=== PATIENT | female | born 2000 | race American Indian/Alaskan Native ===

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

== ENCOUNTER 2019-01-16 13:48 | Emergency (ER) | payer SELFPAY ==
[2019-01-16 14:04] VITALS: BMI 18.1
[2019-01-16 14:08] VITALS: RESP 18; TEMP 98.9; O2SAT 100
[2019-01-16] MEDS ORDERED: Sodium Chloride 0.9% 1,000 ML IV STA (14:28)
--- NOTE | 2019-01-16 14:28 | ED PDOC ---
Arrival/HPI - General Chief Complaint: Abdominal Pain Time Seen by Provider: 01/16/19 13:49 Historian: Patient - History of Present Illness Narrative History of Present Illness (Text): 18 y/o female with no significant PMH presents to the ED c/o nausea and diarrhea x 1 day. Associated crampy abdominal pain that resolves with BM. Approx 3-4 episodes of nonbloody diarrhea daily. No abdominal pain now. Tolerating PO without difficulty. 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 No recent travel or antibiotics. Requesting work note. Denies fever, chills, vomiting, hematochezia, chest pain, SOB, congestion, urinary symptoms, vaginal bleeding/odor/discharge. Past Medical History - Provider Review Nursing Documentation Reviewed: Yes - Infectious Disease Hx of Infectious Diseases: None - Psychiatric Hx Psychophysiologic Disorder: No Hx Substance Use: No - Anesthesia Hx Anesthesia: No Family/Social History - Physician Review Nursing Documentation Reviewed: Yes Family/Social History: No Known Family HX Smoking Status: Never Smoked Hx Alcohol Use: No Hx Substance Use: No Allergies/Home Meds Allergies/Adverse Reactions: Allergies Penicillins Allergy (Verified 01/16/19 14:04) RASH Review of Systems - Review of Systems Constitutional: Normal. absent: Fevers Eyes: Normal. absent: Vision Changes ENT: Normal. absent: Sore Throat, Sinus Congestion Respiratory: Normal. absent: SOB Cardiovascular: Normal. absent: Chest Pain, Palpitations, Syncope Gastrointestinal: Abdominal Pain, Diarrhea, Nausea. absent: Vomiting, Appetite Changes, Hematochezia, Hematemesis Genitourinary Female: Normal. absent: Dysuria, Frequency, Vaginal Bleeding, Vaginal Discharge Musculoskeletal: Normal. absent: Back Pain, Neck Pain Skin: Normal. absent: Rash Neurological: Normal. absent: Headache, Dizziness Physical Exam Vital Signs Reviewed: Yes Vital Signs Temp Pulse Resp BP Pulse Ox 01/16/19 14:08 98.9 F 67 18 99/67 L 100 Temperature: Afebrile Blood Pressure: Hypotensive Pulse: Regular Respiratory Rate: Normal Appearance: Positive for: Well-Appearing, Non-Toxic, Comfortable Pain Distress: None Mental Status: Positive for: Alert and Oriented X 3 - Systems Exam Head: Present: Atraumatic, Normocephalic Pupils: Present: PERRL Extroacular Muscles: Present: EOMI Conjunctiva: Present: Normal Mouth: Present: Moist Mucous Membranes Neck: Present: Normal Range of Motion Respiratory/Chest: Present: Clear to Auscultation, Good Air Exchange. No: Respiratory Distress, Accessory Muscle Use Cardiovascular: Present: Regular Rate and Rhythm, Normal S1, S2, Peripheal Pulses Present Abdomen: Present: Normal Bowel Sounds. No: Tenderness, Distention, Peritoneal Signs, Rebound, Guarding Back: Present: Normal Inspection. No: CVA Tenderness Upper Extremity: Present: Normal Inspection, Normal ROM, NORMAL PULSES, Neurovascularly Intact, Capillary Refill < 2s. No: Cyanosis, Edema, Temperature Abnormalties Lower Extremity: Present: Normal Inspection, Normal ROM. No: Edema Neurological: Present: GCS=15, CN II-XII Intact, Speech Normal, Motor Func Grossly Intact, Normal Sensory Function, Gait Normal Skin: Present: Warm, Dry, Normal Color. No: Rashes Psychiatric: Present: Alert, Oriented x 3, Normal Insight, Normal Concentration, Normal Affect, Normal Mood Medical Decision Making ED Course and Treatment: Initial Plan: * Labs * UA * IVF * Zofran Bloodwork and urine reviewed, mild anemia, otherwise unremarkable. Pt has history of anemia secondary to heavy periods, asymptomatic. Advised PMD/clinic followup. Patient reports resolution of symptoms with medication. Abdomen continues to be soft, nontender, nondistended. BP has improved with fluids. Advised rest, fluids, and PMD followup. Work note provided. Diagnostic testing results and plan of care discussed with patient. Strict i nstructions given regarding prescription use, importance of followup, and signs/symptoms to return to ER including worsening pain, fever, cough, or any other new/worsening symptoms. Pt verbalized understanding of discussion. Patient is A&Ox3, ambulating with steady gait, with vital signs stable for discharge. - Lab Interpretations Lab Results: 01/16/19 14:50 01/16/19 14:50 Lab Results 01/16/19 15:00: Urine Color Yellow, Urine Appearance Clear, Urine pH 6.0, Ur Specific [place] 1.025, Urine Protein Negative, Urine Glucose (UA) Negative, Urine Ketones Negative, Urine Blood Negative, Urine Nitrate Negative, Urine Bilirubin Negative, Urine Urobilinogen 0.2, Ur Leukocyte Esterase Negative 01/16/19 14:50: Sodium 139, Potassium 3.9, Chloride 106, Carbon Dioxide 25, Anion Gap 12, BUN 10, Creatinine 0.5 L, Est GFR ( Amer) > 60, Est GFR (Non-Af Amer) > 60, Random Glucose 78, Calcium 8.7, Total Bilirubin 0.2, AST 27, ALT 20, Alkaline Phosphatase 90, Total Protein 7.3, Albumin 4.2, Globulin 3.1, Albumin/Globulin Ratio 1.3 01/16/19 14:50: PT 11.0, INR 0.99, APTT 35.7 01/16/19 14:50: WBC 5.6, RBC 4.26, Hgb 10.5 L, Hct 33.1 L, MCV 77.7 L D, MCH 24.6 L, MCHC 31.7, RDW 14.5, Plt Count 282, MPV 9.1, Neut % (Auto) 44.8 L, Lymph % (Auto) 45.6 H, [place] % (Auto) 7.8 H, Eos % (Auto) 1.6, Baso % (Auto) 0.2, Lymph # (Auto) 2.6, [place] # (Auto) 0.4, Eos # (Auto) 0.1, Baso # (Auto) 0.01, Absolute Neuts (auto) 2.53 I have reviewed the lab results: Yes Disposition/Present on Arrival - Present on Arrival Any Indicators Present on Arrival: No History of DVT/PE: No History of Uncontrolled Diabetes: No Urinary Catheter: No History of Decub. Ulcer: No History Surgical Site Infection Following: None - Disposition Have Diagnosis and Disposition been Completed?: Yes Diagnosis: Anemia, Viral syndrome Disposition: HOME/ ROUTINE Disposition Time: 15:35 Condition: IMPROVED Discharge Instructions (ExitCare): Anemia Caused by Low Iron, Viral Gastroenteritis, Adult (DC) Additional Instructions: Increase fluids [place] diet Rest, no strenuous activity Followup with primary doctor within 2 days Return to ER with any new/worsening symptoms Prescriptions: Famotidine [Pepcid] 20 mg PO Q12 PRN #30 tab PRN Reason: Indigestion Referrals: at [facility] [place] [Outside] - Follow up with primary Maite Jiang MD [Medical Doctor] - Follow up with primary Forms: [employer] ([place]), WORK NOTE
[2019-01-16 15:29] LABS: BASO # 0.01 K/mm3 (0.0-2.0); BASO % 0.2 % (0.0-3.0); EOS # 0.1 (0.0-0.7); EOS % 1.6 % (1.5-5.0); HEMOGLOBIN 10.5 g/dL (12.0-16.0); LYMPH # 2.6 (1.2-3.4); LYMPH % 45.6 % (22.0-35.0); MEAN CELL VOLUME 77.7 fl (80.0-105.0); MEAN CORPUSCULAR HEMOGLOBIN 24.6 pg (25.0-35.0); MEAN CORPUSCULAR HGB CONC 31.7 g/dl (31.0-37.0); MEAN PLATELET VOLUME 9.1 fl (7.0-11.0); MONO # 0.4 (0.1-0.6); MONO % 7.8 % (1.0-6.0); RBC 4.26 10^6/uL (3.5-6.1); RED CELL DISTRIBUTION WIDTH 14.5 % (11.5-14.5); WHITE BLOOD COUNT 5.6 10^3/uL (4.5-11.0)
[2019-01-16 15:30] LABS: URINE BILIRUBIN NEGATIVE (NEGATIVE); URINE BLOOD NEGATIVE (NEGATIVE); URINE GLUCOSE (UA) NEGATIVE (NEGATIVE); URINE LEUKOCYTE ESTERASE NEGATIVE Leu/uL (NEGATIVE); URINE PROTEIN NEGATIVE mg/dL (<30 mg/dL); URINE UROBILINOGEN 0.2 E.U./dL (<1 E.U./dL)
[2019-01-16 15:33] LABS: URINE APPEARANCE CLEAR (CLEAR); URINE COLOR YELLOW (YELLOW)
[2019-01-16 15:35] LABS: INR 0.99; PARTIAL THROMBOPLASTIN TIME 35.7 Seconds (26.9-38.3)
[2019-01-16 15:38] LABS: ALB/GLOB RATIO 1.3 (1.1-1.8); ALBUMIN 4.2 g/dL (3.0-4.8); ALT/SGPT 20 U/L (7-56); AST/SGOT 27 U/L (14-36); BLOOD UREA NITROGEN 10 mg/dL (7-21); CALCIUM 8.7 mg/dL (8.4-10.5); GFR NON-AFRICAN AMERICAN > 60
[2019-01-16 15:54] VITALS: BP 107/72; PULSE 63
== END 2019-01-16 16:00 | disposition home or self-care (01) ==
LOC: ED 13:48
DX: D64.9 Anemia, unspecified (principal); B34.9 Viral infection, unspecified
CPT/HCPCS: 80053; 81003; 81025; 85025; 85610; 85730; 96374; 99283; J2405; J7030